=== PATIENT | female | born 1975 | race Caucasian/White ===

== ENCOUNTER 2017-12-30 12:13 | Emergency (ER) | payer OTHER ==
[~2017-12-30] VITALS: Ht 149.9 cm; Wt 51.7 kg
[~2017-12-30 12:13] MED LIST: ALBUTEROL SULF8.5 GM IH; AMITRIPTYLINE H10 MG PO; Aspirin E.C. PO; BIOTIN1000 MICRO PO; BIOTIN10000 MC1 PO; NEURONTIN600 MG PO; NORCO 5/3251 TABLET PO; PERCOCET 5/31 TABLET PO; PRAVASTATIN SOD40 MG PO; PREDNISONE20 MG PO; PROAIR HFA8.5 GM IH; ROBAXIN500 MG PO; TRAMADOL HCL50 MG PO; ZOFRAN4 MG PO
[2017-12-30 12:17] VITALS: BP 135/87
== END 2017-12-30 12:22 | disposition left against medical advice (07) ==
LOC: EME 12:13
DX: M25.561 Pain in right knee (principal); Z91.81 History of falling; Z53.21 Procedure and treatment not carried out due to patient leaving prior to being seen by health care provider